=== PATIENT | female | born 1975 | race African-American/Black ===

== ENCOUNTER → 2016-09-22 10:20 | Outpatient (CLI) | payer BC ==
[2010-10-29 13:55] VITALS: BMI 28.4
== END | disposition home or self-care (01) ==
LOC: D.RT 10:20
DX: J45.909 Unspecified asthma, uncomplicated (principal)

== ENCOUNTER → 2017-04-13 13:59 | Outpatient (CLI) | payer MEDICARE ==
[2010-10-29 13:55] VITALS: BMI 28.4
[2017-04-14 08:13] LABS: IMMUNOGLOBULIN E 3 IU/mL (0-100)
== END | disposition home or self-care (01) ==
LOC: D.RT 13:59
PROVIDERS: Internal Medicine Pulmonary Disease
DX: I26.99 Other pulmonary embolism without acute cor pulmonale (principal)

== ENCOUNTER 2017-05-24 09:13 | Outpatient (CLI) | payer MEDICARE ==
[~2017-05-24] VITALS: Ht 208.3 cm; Wt 84.1 kg
[2017-05-24] MEDS ORDERED: NORVASC2.5 MG PO (10:51)
[2017-05-24] MEDS ORDERED: METOPROLOL TART50 MG PO (10:51)
[2017-05-24] MEDS ORDERED: COUMADIN7.5 MG PO (10:52)
[2017-05-24] MEDS ORDERED: ATIVAN1 MG PO (10:53)
[2017-05-24] MEDS ORDERED: NOVOLIN N100 U/ML SQ (10:54)
[2017-05-24] MEDS ORDERED: CELEXA40 MG PO (10:55)
[2017-05-24] MEDS ORDERED: HUMALOG 30100 UNITS/ SC (10:55)
[2017-05-24 10:58] LABS: BASOPHILS 0.2 % (0-2); EOSINOPHILS 2.4 % (0-7); HEMATOCRIT 40.2 % (36.0-48.0); HEMOGLOBIN 13.7 g/dL (12-16); IMMATURE GRANULOCYTES 0.2 % (0-5); LYMPHOCYTES 43.7 % (15-50); MCH 29.8 pg (26.0-34.0); MCHC 34.1 g/dL (31.0-37.0); MCV 87.6 fL (80.0-100.0); MEAN PLATELET VOLUME 10.4 fL (7.4-10.4); MONOCYTES 7.2 % (2-11); NEUTROPHILS 46.3 % (40-80); PLATELET COUNT 260 10x3/uL (130-400); RBC 4.59 10x6/uL (4.00-5.40); RDW 13.1 % (11.5-14.5); WBC 5.7 10x3/uL (4.8-10.8)
[2017-05-24 11:03] VITALS: BP 147/86; Ht 208.3 cm; Wt 84.1 kg
[2017-05-24 11:03] LABS: APTT 27.6 SECONDS (22.8-39.4); INR 1.02 (0.85-1.17)
[2017-05-24 11:08] LABS: ALBUMIN 3.2 g/dL (3.4-5.0); ALKALINE PHOSPHATASE 67 U/L (46-116); ALT (SGPT) 21 U/L (10-68); BILIRUBIN - TOTAL 0.38 mg/dL (0.2-1.3); CALC OSMOLALITY 273 mosm/kg (275-300); CALCIUM 8.8 mg/dL (8.5-10.1); CARBON DIOXIDE 27.8 mmol/L (21.0-32.0); CHLORIDE - SERUM 104 mmol/L (98-107); CREATININE - SERUM 0.8 mg/dL (0.6-1.3); POTASSIUM - SERUM 3.5 mmol/L (3.5-5.1); SODIUM 138 mmol/L (136-145); UREA NITROGEN 9 mg/dL (7-18); eGFR NON AFRICAN AMERICAN 83 mL/min (90-120)
[2017-05-24 11:10] LABS: GLUCOSE 79 mg/dL (74-106)
[2017-05-24 18:30] LABS: MACROPHAGES BF 44 %
[2017-05-25 11:18] LABS: ANA REFLEX - DIRECT Negative (Negative)
[2017-05-25 13:16] LABS: FUNGUS STAIN Final report (())
[2017-05-25 17:12] LABS: ACID FAST SMEAR Negative (()); AFB SPECIMEN PROCESSING Concentration (())
[2017-05-28 17:11] LABS: ANCA - ANTIMYELOPEROXIDASE <9.0 U/mL (0.0-9.0); ANCA - ANTIPROTEINASE 3 <3.5 U/mL (0.0-3.5); ANCA - ATYPICAL <1:20 titer (Neg:<1:20); ANCA - CYTOPLASMIC <1:20 titer (Neg:<1:20); ANCA - PERINUCLEAR <1:20 titer (Neg:<1:20)
== END 2017-05-24 14:45 | disposition home or self-care (01) ==
LOC: D.OPS 09:13
PROVIDERS: Internal Medicine Pulmonary Disease
DX: J84.9 Interstitial pulmonary disease, unspecified (principal); J45.909 Unspecified asthma, uncomplicated; R05 Cough; R93.8 Abnormal findings on diagnostic imaging of other specified body structures; I10 Essential (primary) hypertension; E11.9 Type 2 diabetes mellitus without complications; Z01.812 Encounter for preprocedural laboratory examination

== ENCOUNTER 2018-02-15 15:19 | Inpatient (IN) | payer BC ==
[~2018-02-15] VITALS: Ht 208.3 cm; Wt 84.6 kg
--- NOTE | ~2018-02-15 | MORECARE ---
CASE MANAGEMENT DISCHARGE SUMMARY PATIENT: AFSANEH CORCORAN UNIT: [id number] ADM DATE: 02/15/18 AGE: 42 : 75 SEX: F ROOM/BED: D.[facility] AUTHOR: AMY,DOC PHYSICIAN: REFERRING PHYSICIAN: SATISH FARR MD DATE OF SERVICE: 02/25/18 Discharge Plan Patient Name: AFSANEH CORCORAN Facility: [facility]:[place] : 1975 Planned Disposition: Home Anticipated Discharge Date: Discharge Date: 02/25/2018 Expected LOS: Initial Reviewer: [email or web address] Initial Review Date: 02/18/2018 Generated: 02/25/18 6:42 pm Comments DCP- Discharge Planning Updated by [email or web address]: Sandra Jonas on 02/18/18 3:[address] Patient Name: AFSANEH CORCORAN Admission Status: Urgent Accout number: [id number] Admission Date: 02-15-2018 : 1975 Admission Diagnosis: Attending: SATISH FARR Current LOS: 3 Anticipated DC Date: Planned Disposition: Home Primary Insurance: [employer] TRUE BLUE PPO Discharge Planning Comments: CM met with patient and her family in the room. Verbal permission received to discuss discharge planning with family present. She states she lives with her 4 children (ages are 25,24,19 and 7). States she is independent with all ADL's and IADL's. She does have oxygen with portability and nebulizer at home and her DME company is with [facility] in [place]. I discussed the availability of inpatient rehab, SNF, home health and additional DME. She declines needs at this time. No needs identified. CM will continue to follow and assist with discharge planning/needs. Sawyer Helper: Sandra Jonas DCPIA - Discharge Planning Initial Assessment Updated by [email or web address]: Sandra Jonas on 02/18/18 4:50 pm * Is the patient Alert and Oriented? Yes * How many steps to enter\exit or inside your home? 0/0 * PCP Dr. Farr * [facility] [address] * Preadmission Environment Home with Family * ADLs Independent * Equipment Nebulizer Other Oxygen * Other Equipment Portable oxygen * List name and contact numbers for known caregivers / representatives who currently or will assist patient after discharge: Breezy Esposito - [facility] - [phone] Chela Esposito - DTR - [phone] * Verbal permission to speak to the caregivers and representatives has been obtained from the patient. Yes * Community resources currently utilized None * Please name any agencies selected above. DME company is [email or web address] * Additional services required to return to the preadmission environment? No * Can the patient safely return to the preadmission environment? Yes * Has this patient been hospitalized within the prior 30 days at any hospital? No Last DP export: 02/18/18 4:03 Patient Name: AFSANEH CORCORAN Page 60112 at 1742 All edits/amendments must be made on the electronic document DICTATION DATE: 02/25/181741 UI ENGINEER: HONORIO 02/25/181741 RPT#: [id number] DC DATE:02/25/18 STATUS: DIS IN [facility] [address] [place] [address] END OF REPORT
--- NOTE | ~2018-02-15 | MORECARE ---
CASE MANAGEMENT DISCHARGE SUMMARY PATIENT: AFSANEH CORCORAN UNIT: [id number] ADM DATE: 02/15/18 AGE: 42 : 75 SEX: F ROOM/BED: D.2231 AUTHOR: AMY,DOC PHYSICIAN: REFERRING PHYSICIAN: SATISH FARR MD DATE OF SERVICE: 02/18/18 Discharge Plan Patient Name: AFSANEH CORCORAN Facility: [facility]:[place] : 1975 Planned Disposition: Home Anticipated Discharge Date: Discharge Date: Expected LOS: Initial Reviewer: [email or web address] Initial Review Date: 02/18/2018 Generated: 02/18/18 6:03 pm Comments DCP- Discharge Planning Updated by [email or web address]: Sandra Jonas on 02/18/18 3:[address] Patient Name: AFSANEH CORCORAN Admission Status: Urgent Accout number: [id number] Admission Date: 02-15-2018 : 1975 Admission Diagnosis: Attending: SATISH FARR Current LOS: 3 Anticipated DC Date: Planned Disposition: Home Primary Insurance: [employer] TRUE BLUE PPO Discharge Planning Comments: CM met with patient and her family in the room. Verbal permission received to discuss discharge planning with family present. She states she lives with her 4 children (ages are 25,24,19 and 7). States she is independent with all ADL's and IADL's. She does have oxygen with portability and nebulizer at home and her DME company is with [facility] in [place]. I discussed the availability of inpatient rehab, SNF, home health and additional DME. She declines needs at this time. No needs identified. CM will continue to follow and assist with discharge planning/needs. Information Security Analyst: Sandra Jonas DCPIA - Discharge Planning Initial Assessment Updated by [email or web address]: Sandra Jonas on 02/18/18 4:50 pm * Is the patient Alert and Oriented? Yes * How many steps to enter\exit or inside your home? 0/0 * PCP Dr. Farr * [facility] [address] * Preadmission Environment Home with Family * ADLs Independent * Equipment Nebulizer Other Oxygen * Other Equipment Portable oxygen * List name and contact numbers for known caregivers / representatives who currently or will assist patient after discharge: Breezy Esposito - son - [phone] Chela Esposito - DTR - [phone] * Verbal permission to speak to the caregivers and representatives has been obtained from the patient. Yes * Community resources currently utilized None * Please name any agencies selected above. DME company is [employer] * Additional services required to return to the preadmission environment? No * Can the patient safely return to the preadmission environment? Yes * Has this patient been hospitalized within the prior 30 days at any hospital? No Last DP export: 02/18/18 3:54 Patient Name: AFSANEH CORCORAN Page 36457 at 1703 All edits/amendments must be made on the electronic document DICTATION DATE: 02/18/181701 ARCHITECTURAL WOOD MODEL MAKER: HONORIO 02/18/181701 RPT#: [id number] DC DATE: STATUS: ADM IN [facility] [address] [place] [address] END OF REPORT
--- NOTE | ~2018-02-15 | MORECARE ---
CASE MANAGEMENT DISCHARGE SUMMARY PATIENT: AFSANEH CORCORAN UNIT: [id number] ADM DATE: 02/15/18 AGE: 42 : 75 SEX: F ROOM/BED: D.2231 AUTHOR: AMY,DOC PHYSICIAN: REFERRING PHYSICIAN: SATISH FARR MD DATE OF SERVICE: 02/18/18 Discharge Plan Patient Name: AFSANEH CORCORAN Facility: [facility]:[place] : 1975 Planned Disposition: Home Anticipated Discharge Date: Discharge Date: Expected LOS: Initial Reviewer: [email or web address] Initial Review Date: 02/18/2018 Generated: 02/18/18 5:54 pm Comments DCP- Discharge Planning Updated by [email or web address]: Snadra Jonas on 02/18/18 3:[address] Patient Name: AFSANEH CORCORAN Admission Status: Urgent Accout number: [id number] Admission Date: 02-15-2018 : 1975 Admission Diagnosis: Attending: SATISH FARR Current LOS: 3 Anticipated DC Date: Planned Disposition: Home Primary Insurance: [email or web address] TRUE BLUE PPO Discharge Planning Comments: CM met with patient and her family in the room. Verbal permission received to discuss discharge planning with family present. She states she lives with her 4 children (ages are 25,24,19 and 7). States she is independent with all ADL's and IADL's. She does have oxygen with portability and nebulizer at home and her DME company is with [facility] in [place]. I discussed the availability of inpatient rehab, SNF, home health and additional DME. She declines needs at this time. No needs identified. CM will continue to follow and assist with discharge planning/needs. Appraiser Auditor: Sandra Jonas DCPIA - Discharge Planning Initial Assessment Updated by [email or web address]: Sandra Jonas on 02/18/18 4:50 pm * Is the patient Alert and Oriented? Yes * How many steps to enter\exit or inside your home? 0/0 * PCP Dr. Farr * [facility] [address] * Preadmission Environment Home with Family * ADLs Independent * Equipment Nebulizer Other Oxygen * Other Equipment Portable oxygen * List name and contact numbers for known caregivers / representatives who currently or will assist patient after discharge: Breezy Esposito - son - [phone] Chela Esposito - DTR - [phone] * Verbal permission to speak to the caregivers and representatives has been obtained from the patient. Yes * Community resources currently utilized None * Please name any agencies selected above. DME company is [employer] * Additional services required to return to the preadmission environment? No * Can the patient safely return to the preadmission environment? Yes * Has this patient been hospitalized within the prior 30 days at any hospital? No Patient Name: AFSANEH CORCORAN Page [id number] at 1654 All edits/amendments must be made on the electronic document DICTATION DATE: 02/18/181653 TRANSIT OPERATOR: HONORIO 02/18/181653 RPT#: [id number] [place] DATE: STATUS: ADM IN [facility] [address] [place] [address] END OF REPORT
--- NOTE | ~2018-02-15 | OP ---
PATIENT NAME: AFSANEH CORCORAN MEDICAL RECORD: [id number] :[birth year] LOCATION:[facility] D.CV03 ADMISSION DATE:02/15/18 SURGEON: SEVEN CHAPARRO MD DATE OF OPERATION: 02/19/2018 SURGEON: Seven Chaparro MD ANESTHESIA: General endotracheal, Melvin Gruber MD OPERATIONS PERFORMED: 1. Video-assisted thoracoscopy. 2. Left upper lobe biopsy. 3. Cultures for aerobe, anaerobe, TB, and fungus. PREOPERATIVE DIAGNOSIS: Interstitial lung disease. POSTOPERATIVE DIAGNOSIS: Interstitial lung disease. INDICATION FOR OPERATION: Interstitial lung disease. FINDINGS OF THE OPERATION: Noncompliant lung. There were no other pathologic abnormalities noted. ESTIMATED BLOOD LOSS: Less than 10 cc. DESCRIPTION OF PROCEDURE: After informed consent, adequate preoperative medication, and evaluation, the patient was brought to the operating room and placed on the table in supine position. After induction of general endotracheal anesthesia and application of appropriate monitoring devices, the patient underwent flexible fiberoptic bronchoscopy and placement of a double-lumen tube. The patient was then turned in right lateral decubitus position, protecting the neurological structures and pressure points. Left chest was prepped and draped in sterile field utilizing Betadine scrub, alcohol, and Betadine solution. A Betadine-impregnated drape was also used. A port was placed in the midaxillary line, ninth interspace, for the camera. The lung was examined. The lung was not compliant. The anterior fifth interspace and posterior seventh interspace were placed under direct vision. The upper lobe was grasped and a biopsy was taken utilizing an Endo-CORTES stapler. The specimen was removed in an Endopouch. The specimen was examined and a portion was sent for cultures. The remainder of the specimen went to pathology for histologic examination. The chest was irrigated. The chest was again examined and there was no bleeding. There were no air leaks. A #32 chest tube was placed through the camera port, secured, and connected to the underwater seal and suction. The anterior and posterior ports were removed and the wounds were closed with 2-0 Vicryl on the deep subcutaneous tissue, 5-0 subcuticular Monocryl on the skin. Sterile dressings were applied. The patient tolerated the procedure well, turned in a supine position, and transferred to cardiovascular recovery in satisfactory condition. TRANSINT:[id number] Voice Confirmation ID: [id number] DOCUMENT ID: [id number] OPERATIVE REPORT [id number] AFSANEH CORCORAN EDWARD MD at 1001 CC: [id number] DICTATION DATE: 02/19/18 1001 BASKETBALLS AND FOOTBALLS REVERSER: 02/19/18 1114 DIS IN 02/25/18 [place] [id number] [place] [id number]
[~2018-02-15 15:19] MED LIST: ATIVAN1 MG PO; CELEXA40 MG PO; COUMADIN7.5 MG PO; HUMALOG 30100 UNITS/ SC; METOPROLOL TART50 MG PO; NORVASC2.5 MG PO; NOVOLIN 70/30 110 ML SC
[2018-02-15 16:35] VITALS: BP 134/65
[2018-02-15 18:13] LABS: BASOPHILS 0.1 % (0-2); EOSINOPHILS 2.8 % (0-7); HEMATOCRIT 36.2 % (36.0-48.0); HEMOGLOBIN 12.1 g/dL (12-16); IMMATURE GRANULOCYTES 0.4 % (0-5); LYMPHOCYTES 31.2 % (15-50); MCH 29.6 pg (26.0-34.0); MCHC 33.4 g/dL (31.0-37.0); MCV 88.5 fL (80.0-100.0); MEAN PLATELET VOLUME 10.4 fL (7.4-10.4); MONOCYTES 5.7 % (2-11); NEUTROPHILS 59.8 % (40-80); PLATELET COUNT 258 10x3/uL (130-400); RBC 4.09 10x6/uL (4.00-5.40); RDW 12.9 % (11.5-14.5); WBC 6.8 10x3/uL (4.8-10.8)
[2018-02-15 18:44] LABS: INR 1.1 (0.85-1.17); PROTIME 13.8 SECONDS (11.6-15.0)
[2018-02-15 18:45] LABS: ALBUMIN 2.9 g/dL (3.4-5.0); ANION GAP 9.3 mmol/L (8-16); BILIRUBIN - TOTAL 0.22 mg/dL (0.2-1.3); CALCIUM 8.4 mg/dL (8.5-10.1); CARBON DIOXIDE 27.6 mmol/L (21.0-32.0); CREATININE - SERUM 0.9 mg/dL (0.6-1.3); POTASSIUM - SERUM 3.9 mmol/L (3.5-5.1); PROTEIN - SERUM 6.2 g/dL (6.4-8.2); THYROID STIMULATING HORMONE 1.57 uIU/mL (0.36-3.74)
[2018-02-15 21:16] VITALS: BP 148/75
[2018-02-15] MEDS ORDERED: NOVOLIN N SC (22:17)
[2018-02-16 04:17] VITALS: BP 153/82
[2018-02-16 11:22] LABS: BASOPHILS 0 % (0-2); EOSINOPHILS 0 % (0-7); HEMATOCRIT 38.2 % (36.0-48.0); HEMOGLOBIN 12.7 g/dL (12-16); IMMATURE GRANULOCYTES 0.3 % (0-5); LYMPHOCYTES 10.9 % (15-50); MCH 29.9 pg (26.0-34.0); MCHC 33.2 g/dL (31.0-37.0); MCV 89.9 fL (80.0-100.0); MEAN PLATELET VOLUME 10.7 fL (7.4-10.4); MONOCYTES 1.4 % (2-11); NEUTROPHILS 87.4 % (40-80); PLATELET COUNT 297 10x3/uL (130-400); RBC 4.25 10x6/uL (4.00-5.40); RDW 13.2 % (11.5-14.5); WBC 7.1 10x3/uL (4.8-10.8)
[2018-02-16 11:46] LABS: ANION GAP 14.1 mmol/L (8-16); CALCIUM 8.6 mg/dL (8.5-10.1); CARBON DIOXIDE 25.4 mmol/L (21.0-32.0); CREATININE - SERUM 0.9 mg/dL (0.6-1.3)
[2018-02-16 11:55] LABS: POTASSIUM - SERUM 4.5 mmol/L (3.5-5.1)
[2018-02-16 15:00] VITALS: BP 126/60
[2018-02-16 21:31] VITALS: BP 135/63
[2018-02-17 06:03] VITALS: BP 127/64
[2018-02-17 07:49] LABS: BASOPHILS 0 % (0-2); EOSINOPHILS 0 % (0-7); HEMATOCRIT 36.9 % (36.0-48.0); HEMOGLOBIN 12.3 g/dL (12-16); IMMATURE GRANULOCYTES 0.2 % (0-5); LYMPHOCYTES 11.8 % (15-50); MCH 29.6 pg (26.0-34.0); MCHC 33.3 g/dL (31.0-37.0); MCV 88.9 fL (80.0-100.0); MEAN PLATELET VOLUME 10.5 fL (7.4-10.4); MONOCYTES 1.5 % (2-11); NEUTROPHILS 86.5 % (40-80); PLATELET COUNT 283 10x3/uL (130-400); RBC 4.15 10x6/uL (4.00-5.40); RDW 12.8 % (11.5-14.5); WBC 8.8 10x3/uL (4.8-10.8)
[2018-02-17 07:57] LABS: CALC OSMOLALITY 280 mosm/kg (275-300); CALCIUM 8.6 mg/dL (8.5-10.1); CARBON DIOXIDE 27.6 mmol/L (21.0-32.0); CHLORIDE - SERUM 104 mmol/L (98-107); CREATININE - SERUM 0.8 mg/dL (0.6-1.3); POTASSIUM - SERUM 4.3 mmol/L (3.5-5.1); SODIUM 137 mmol/L (136-145); UREA NITROGEN 14 mg/dL (7-18); eGFR NON AFRICAN AMERICAN 83 mL/min (90-120)
[2018-02-17 07:58] LABS: GLUCOSE 209 mg/dL (74-106)
[2018-02-17 08:05] LABS: INR 1.33 (0.85-1.17)
[2018-02-17 20:00] VITALS: BP 142/65
[2018-02-18 05:00] VITALS: BP 142/70
[2018-02-18 06:04] LABS: BASOPHILS 0 % (0-2); EOSINOPHILS 0 % (0-7); HEMOGLOBIN 12.6 g/dL (12-16); IMMATURE GRANULOCYTES 0.2 % (0-5); LYMPHOCYTES 15.2 % (15-50); MCH 29.6 pg (26.0-34.0); MCHC 33.2 g/dL (31.0-37.0); MCV 89.4 fL (80.0-100.0); MEAN PLATELET VOLUME 10.5 fL (7.4-10.4); MONOCYTES 4.3 % (2-11); NEUTROPHILS 80.3 % (40-80); PLATELET COUNT 298 10x3/uL (130-400); RBC 4.25 10x6/uL (4.00-5.40); RDW 13.1 % (11.5-14.5); WBC 8.9 10x3/uL (4.8-10.8)
[2018-02-18 06:20] LABS: INR 1.19 (0.85-1.17); PROTIME 14.7 SECONDS (11.6-15.0)
[2018-02-18 06:29] LABS: CALC OSMOLALITY 282 mosm/kg (275-300); CALCIUM 8.4 mg/dL (8.5-10.1); CARBON DIOXIDE 27.8 mmol/L (21.0-32.0); CHLORIDE - SERUM 105 mmol/L (98-107); CREATININE - SERUM 0.8 mg/dL (0.6-1.3); SODIUM 142 mmol/L (136-145); UREA NITROGEN 12 mg/dL (7-18); eGFR NON AFRICAN AMERICAN 83 mL/min (90-120)
[2018-02-18 06:35] LABS: GLUCOSE 90 mg/dL (74-106)
[2018-02-18 08:21] VITALS: BP 128/78
[2018-02-18 12:38] VITALS: BP 116/56
[2018-02-18 16:52] LABS: HEMATOCRIT 39.3 % (36.0-48.0); HEMOGLOBIN 13.2 g/dL (12-16); MCHC 33.6 g/dL (31.0-37.0); MCV 89.3 fL (80.0-100.0); MEAN PLATELET VOLUME 10.4 fL (7.4-10.4); RBC 4.4 10x6/uL (4.00-5.40)
[2018-02-18 17:00] LABS: APTT 32.4 SECONDS (22.8-39.4); INR 1.07 (0.85-1.17); PROTIME 13.5 SECONDS (11.6-15.0)
[2018-02-18 17:16] LABS: ANION GAP 12.8 mmol/L (8-16); BILIRUBIN - TOTAL 0.22 mg/dL (0.2-1.3); CALCIUM 8.5 mg/dL (8.5-10.1); CARBON DIOXIDE 27.1 mmol/L (21.0-32.0); CREATININE - SERUM 0.9 mg/dL (0.6-1.3); POTASSIUM - SERUM 3.9 mmol/L (3.5-5.1); PROTEIN - SERUM 6.5 g/dL (6.4-8.2)
[2018-02-18 20:00] VITALS: BP 114/50
[2018-02-19] VITALS (24 sets, daily range): BP systolic 117–155; BP diastolic 50–70
[2018-02-19 06:06] LABS: BASOPHILS 0.1 % (0-2); EOSINOPHILS 0 % (0-7); HEMATOCRIT 39.3 % (36.0-48.0); IMMATURE GRANULOCYTES 0.7 % (0-5); LYMPHOCYTES 19.8 % (15-50); MCH 29.9 pg (26.0-34.0); MCHC 33.1 g/dL (31.0-37.0); MCV 90.3 fL (80.0-100.0); MEAN PLATELET VOLUME 10.5 fL (7.4-10.4); MONOCYTES 5.5 % (2-11); NEUTROPHILS 73.9 % (40-80); PLATELET COUNT 288 10x3/uL (130-400); RBC 4.35 10x6/uL (4.00-5.40); RDW 12.9 % (11.5-14.5); WBC 7.6 10x3/uL (4.8-10.8)
[2018-02-19 06:12] LABS: APTT 26.8 SECONDS (22.8-39.4); INR 1.04 (0.85-1.17); PROTIME 13.2 SECONDS (11.6-15.0)
[2018-02-19 06:14] LABS: CALC OSMOLALITY 275 mosm/kg (275-300); CALCIUM 8.2 mg/dL (8.5-10.1); CARBON DIOXIDE 27.6 mmol/L (21.0-32.0); CHLORIDE - SERUM 103 mmol/L (98-107); CREATININE - SERUM 0.7 mg/dL (0.6-1.3); GLUCOSE 190 mg/dL (74-106); POTASSIUM - SERUM 4.3 mmol/L (3.5-5.1); SODIUM 135 mmol/L (136-145); UREA NITROGEN 15 mg/dL (7-18); eGFR NON AFRICAN AMERICAN > 90 mL/min (90-120)
[2018-02-19 14:08] LABS: APPEARANCE CLEAR (CLEAR); BACTERIA FEW /hpf (NONE SEEN); BILIRUBIN NEGATIVE (NEGATIVE); COLOR YELLOW (YELLOW); EPITHELIAL CELLS 0-5 /hpf (0-5); GLUCOSE 1000 mg/dL (NEGATIVE); KETONE LARGE mg/dL (NEGATIVE); NITRITE NEGATIVE (NEGATIVE); PROTEIN NEGATIVE (NEGATIVE); SPECIFIC GRAVITY 1.015 (1.005-1.020); UROBILINOGEN NORMAL (NORMAL); WHITE CELLS - URINE OCC /hpf (0-5)
[2018-02-20] VITALS (26 sets, daily range): BP systolic 99–160; BP diastolic 45–82
[2018-02-20 06:12] LABS: BASOPHILS 0 % (0-2); EOSINOPHILS 0 % (0-7); HEMATOCRIT 32.7 % (36.0-48.0); HEMOGLOBIN 10.7 g/dL (12-16); IMMATURE GRANULOCYTES 0.4 % (0-5); LYMPHOCYTES 16.3 % (15-50); MCH 29.9 pg (26.0-34.0); MCHC 32.7 g/dL (31.0-37.0); MCV 91.3 fL (80.0-100.0); MONOCYTES 7.6 % (2-11); NEUTROPHILS 75.7 % (40-80); PLATELET COUNT 232 10x3/uL (130-400); RBC 3.58 10x6/uL (4.00-5.40); RDW 13.1 % (11.5-14.5); WBC 8.9 10x3/uL (4.8-10.8)
[2018-02-20 06:26] LABS: INR 1.07 (0.85-1.17); PROTIME 13.5 SECONDS (11.6-15.0)
[2018-02-20 06:40] LABS: ALBUMIN 2.2 g/dL (3.4-5.0); ALKALINE PHOSPHATASE 53 U/L (46-116); ALT (SGPT) 16 U/L (10-68); BILIRUBIN - TOTAL 0.45 mg/dL (0.2-1.3); CALC OSMOLALITY 281 mosm/kg (275-300); CALCIUM 7.2 mg/dL (8.5-10.1); CARBON DIOXIDE 27.9 mmol/L (21.0-32.0); CHLORIDE - SERUM 105 mmol/L (98-107); CREATININE - SERUM 0.8 mg/dL (0.6-1.3); GLUCOSE 251 mg/dL (74-106); POTASSIUM - SERUM 4.5 mmol/L (3.5-5.1); PROTEIN - SERUM 5.3 g/dL (6.4-8.2); SODIUM 137 mmol/L (136-145); UREA NITROGEN 13 mg/dL (7-18); eGFR NON AFRICAN AMERICAN 83 mL/min (90-120)
[2018-02-20 13:18] LABS: FUNGUS STAIN Final report (())
[2018-02-20 20:08] LABS: ACID FAST SMEAR Negative (()); AFB SPECIMEN PROCESSING Tissue Grinding (())
[2018-02-21] VITALS (26 sets, daily range): BP systolic 108–159; BP diastolic 46–82
[2018-02-21 06:29] LABS: ALBUMIN 2.2 g/dL (3.4-5.0); ALKALINE PHOSPHATASE 54 U/L (46-116); ALT (SGPT) 20 U/L (10-68); BILIRUBIN - TOTAL 0.19 mg/dL (0.2-1.3); CALCIUM 8.2 mg/dL (8.5-10.1); CARBON DIOXIDE 30.7 mmol/L (21.0-32.0); CHLORIDE - SERUM 104 mmol/L (98-107); CREATININE - SERUM 0.7 mg/dL (0.6-1.3); POTASSIUM - SERUM 4.2 mmol/L (3.5-5.1); PROTEIN - SERUM 5.6 g/dL (6.4-8.2); SODIUM 138 mmol/L (136-145); UREA NITROGEN 14 mg/dL (7-18); eGFR NON AFRICAN AMERICAN > 90 mL/min (90-120)
[2018-02-21 06:33] LABS: CALC OSMOLALITY 281 mosm/kg (275-300); GLUCOSE 197 mg/dL (74-106)
[2018-02-21 06:46] LABS: BASOPHILS 0.1 % (0-2); EOSINOPHILS 0 % (0-7); HEMATOCRIT 35.1 % (36.0-48.0); HEMOGLOBIN 11.6 g/dL (12-16); IMMATURE GRANULOCYTES 0.9 % (0-5); LYMPHOCYTES 15.8 % (15-50); MCH 29.7 pg (26.0-34.0); MEAN PLATELET VOLUME 10.2 fL (7.4-10.4); NEUTROPHILS 76.2 % (40-80); PLATELET COUNT 227 10x3/uL (130-400); RDW 13.1 % (11.5-14.5); WBC 8.9 10x3/uL (4.8-10.8)
[2018-02-22] VITALS (27 sets, daily range): BP systolic 132–172; BP diastolic 52–88; Ht 208.3 cm; Wt 84.6 kg
[2018-02-22 06:24] LABS: BASOPHILS 0 % (0-2); EOSINOPHILS 0.1 % (0-7); HEMATOCRIT 36.9 % (36.0-48.0); HEMOGLOBIN 12.2 g/dL (12-16); IMMATURE GRANULOCYTES 1.3 % (0-5); LYMPHOCYTES 15.5 % (15-50); MCHC 33.1 g/dL (31.0-37.0); MCV 90.9 fL (80.0-100.0); MEAN PLATELET VOLUME 10.2 fL (7.4-10.4); MONOCYTES 5.9 % (2-11); NEUTROPHILS 77.2 % (40-80); PLATELET COUNT 263 10x3/uL (130-400); RBC 4.06 10x6/uL (4.00-5.40); RDW 13.3 % (11.5-14.5); WBC 10.1 10x3/uL (4.8-10.8)
[2018-02-22 06:29] LABS: ALBUMIN 2.3 g/dL (3.4-5.0); ALKALINE PHOSPHATASE 56 U/L (46-116); ALT (SGPT) 21 U/L (10-68); BILIRUBIN - TOTAL 0.15 mg/dL (0.2-1.3); CALC OSMOLALITY 279 mosm/kg (275-300); CALCIUM 8.3 mg/dL (8.5-10.1); CARBON DIOXIDE 29.9 mmol/L (21.0-32.0); CHLORIDE - SERUM 103 mmol/L (98-107); CREATININE - SERUM 0.7 mg/dL (0.6-1.3); GLUCOSE 179 mg/dL (74-106); POTASSIUM - SERUM 4.2 mmol/L (3.5-5.1); SODIUM 138 mmol/L (136-145); UREA NITROGEN 13 mg/dL (7-18); eGFR NON AFRICAN AMERICAN > 90 mL/min (90-120)
[2018-02-23] VITALS (24 sets, daily range): BP systolic 106–150; BP diastolic 58–85
[2018-02-23 05:43] LABS: BASOPHILS 0.1 % (0-2); EOSINOPHILS 2.9 % (0-7); HEMATOCRIT 39.6 % (36.0-48.0); HEMOGLOBIN 13.2 g/dL (12-16); IMMATURE GRANULOCYTES 3.5 % (0-5); LYMPHOCYTES 29.4 % (15-50); MCH 30.1 pg (26.0-34.0); MCHC 33.3 g/dL (31.0-37.0); MCV 90.2 fL (80.0-100.0); MEAN PLATELET VOLUME 9.9 fL (7.4-10.4); NEUTROPHILS 55.1 % (40-80); PLATELET COUNT 278 10x3/uL (130-400); RBC 4.39 10x6/uL (4.00-5.40); RDW 13.3 % (11.5-14.5)
[2018-02-23 05:55] LABS: WBC 16.4 10x3/uL (4.8-10.8)
[2018-02-23 06:00] LABS: CALCIUM 8.7 mg/dL (8.5-10.1); CARBON DIOXIDE 30.9 mmol/L (21.0-32.0); CHLORIDE - SERUM 102 mmol/L (98-107); CREATININE - SERUM 0.8 mg/dL (0.6-1.3); SODIUM 139 mmol/L (136-145); eGFR NON AFRICAN AMERICAN 83 mL/min (90-120)
[2018-02-23 06:02] LABS: CALC OSMOLALITY 277 mosm/kg (275-300); POTASSIUM - SERUM 3.3 mmol/L (3.5-5.1); UREA NITROGEN 22 mg/dL (7-18)
[2018-02-23 06:08] LABS: GLUCOSE 36 mg/dL (74-106)
[2018-02-24] VITALS (24 sets, daily range): BP systolic 113–155; BP diastolic 45–74
[2018-02-25] VITALS (12 sets, daily range): BP systolic 114–139; BP diastolic 44–68
[2018-02-25 06:57] LABS: INR 1.05 (0.85-1.17); PROTIME 13.4 SECONDS (11.6-15.0)
[2018-02-25] MEDS ORDERED: ASPIRIN EC81 M1 PO (10:24)
[2018-02-25] MEDS ORDERED: Percocet-10 PO (10:30)
[2018-02-25] MEDS ORDERED: PREDNISONE20 MG PO (11:22)
[2018-02-26 15:23] LABS: FUNGUS MYCOLOGY CULTURE Preliminary report (())
== END 2018-02-25 15:23 | disposition home or self-care (01) | DRG 166 ==
LOC: D.MS 15:19 → D.CVICU 15:19
PROVIDERS: Emergency Medicine; Family Medicine; Internal Medicine Cardiovascular Disease; Internal Medicine Nephrology; Internal Medicine Pulmonary Disease
PROC: 0BBG4ZX Excision of Left Upper Lung Lobe, Percutaneous Endoscopic Approach, Diagnostic (ICD-10-PCS; principal; 2018-02-19 07:30)
DX: J15.6 Pneumonia due to other Gram-negative bacteria (principal); J96.21 Acute and chronic respiratory failure with hypoxia; J84.9 Interstitial pulmonary disease, unspecified; D68.59 Other primary thrombophilia; J45.901 Unspecified asthma with (acute) exacerbation; J15.20 Pneumonia due to staphylococcus, unspecified; E10.9 Type 1 diabetes mellitus without complications; I10 Essential (primary) hypertension; F41.9 Anxiety disorder, unspecified; E78.5 Hyperlipidemia, unspecified; Z86.711 Personal history of pulmonary embolism; Z79.01 Long term (current) use of anticoagulants

== ENCOUNTER → 2018-03-28 08:57 | Outpatient (CLI) | payer BC ==
[2018-02-22 01:43] VITALS: BMI 20.7
[~2018-03-28 08:57] MED LIST changes: +ASPIRIN EC81 M1 PO; +NORCO 10-325 TA1 TAB PO; +NOVOLIN N SC; +PREDNISONE20 MG PO; +Percocet-10 PO
== END | disposition home or self-care (01) ==
LOC: D.RAD 08:57
DX: J84.9 Interstitial pulmonary disease, unspecified (principal)

== ENCOUNTER 2018-03-29 13:09 | Inpatient (IN) | payer BC ==
[2018-02-22 01:43] VITALS: BMI 20.7
--- NOTE | ~2018-03-29 | MORECARE ---
CASE MANAGEMENT DISCHARGE SUMMARY PATIENT: AFSANEH CORCORAN UNIT: [id number] ADM DATE: 03/29/18 AGE: 42 : 75 SEX: F ROOM/BED: D.2239 AUTHOR: AMY,DOC PHYSICIAN: REFERRING PHYSICIAN: CALEB KULKARNI MD DATE OF SERVICE: 04/04/18 Discharge Plan Patient Name: AFSANEH CORCORAN Facility: [facility]:[place] : 1975 Planned Disposition: Home Anticipated Discharge Date: 04/01/18 Discharge Date: 04/01/2018 Expected LOS: 3 Initial Reviewer: [email or web address] Initial Review Date: 04/01/2018 Generated: 04/04/18 1:54 pm Comments DCP- Discharge Planning Updated by [email or web address]: Sandra Jonas on 04/01/18 11:[address] Patient Name: AFSANEH CORCORAN Admission Status: Elective Accout number: [id number] Admission Date: 03-29-2018 : 1975 Admission Diagnosis: Attending: CALEB KULKARNI Current LOS: 3 Anticipated DC Date: 04-01-2018 Planned Disposition: Home Primary Insurance: [employer] TRUE BLUE PPO Discharge Planning Comments: CM met with patient to discuss discharge planning, she is alone in the room. States she lives with her 4 children (ages 25,24,19 and 7). States she is independent with all ADL's and IADL's. States either her older son or daughter will take her home on discharge. States she has oxygen with portability and it is in the car. Declines need for home health services. No needs identified. Anticipate discharge possible later today if XRAY is stable after CT is removed. CM will continue to follow and assist with discharge planning/needs. Change Management Consultant: Sandra Jonas DCPIA - Discharge Planning Initial Assessment Updated by [email or web address]: Sandra Jonas on 04/01/18 12:47 pm * Is the patient Alert and Oriented? Yes * How many steps to enter\exit or inside your home? 0/0 * PCP Dr. Farr * Pharmacy [facility] on [address] * Preadmission Environment Home with Family * ADLs Independent * Equipment Nebulizer Other Oxygen * Other Equipment Portable oxygen * List name and contact numbers for known caregivers / representatives who currently or will assist patient after discharge: Breezy Esposito - son - [phone] Chela DTR - [phone] * Verbal permission to speak to the caregivers and representatives has been obtained from the patient. Yes * Community resources currently utilized None * Please name any agencies selected above. [employer] is DME or oxygen * Additional services required to return to the preadmission environment? No * Can the patient safely return to the preadmission environment? Yes * Has this patient been hospitalized within the prior 30 days at any hospital? No Last DP export: 04/01/18 11:50 Patient Name: AFSANEH CORCORAN Page 16568 at 1254 All edits/amendments must be made on the electronic document DICTATION DATE: 04/04/181252 SERVICE ORDER CLERK: HONORIO 04/04/18 1253 RPT#: [id number] DC DATE:04/01/18 STATUS: DIS IN [facility] [address] [place] [address] END OF REPORT
--- NOTE | ~2018-03-29 | MORECARE ---
CASE MANAGEMENT DISCHARGE SUMMARY PATIENT: AFSANEH CORCORAN UNIT: [id number] ADM DATE: 03/29/18 AGE: 42 : 75 SEX: F ROOM/BED: D.2239 AUTHOR: AMY,DOC PHYSICIAN: REFERRING PHYSICIAN: CALEB KULKARNI MD DATE OF SERVICE: 04/01/18 Discharge Plan Patient Name: AFSANEH CORCORAN Facility: [facility]:[place] : 1975 Planned Disposition: Home Anticipated Discharge Date: 04/01/18 Discharge Date: Expected LOS: 3 Initial Reviewer: [email or web address] Initial Review Date: 04/01/2018 Generated: 04/01/18 1:50 pm Comments DCP- Discharge Planning Updated by [email or web address]: Sandra Jonas on 04/01/18 11:[address] Patient Name: AFSANEH CORCORAN Admission Status: Elective Accout number: [id number] Admission Date: 03-29-2018 : 1975 Admission Diagnosis: Attending: CALEB KULKARNI Current LOS: 3 Anticipated DC Date: 04-01-2018 Planned Disposition: Home Primary Insurance: [employer] TRUE BLUE PPO Discharge Planning Comments: CM met with patient to discuss discharge planning, she is alone in the room. States she lives with her 4 children (ages 25,24,19 and 7). States she is independent with all ADL's and IADL's. States either her older son or daughter will take her home on discharge. States she has oxygen with portability and it is in the car. Declines need for home health services. No needs identified. Anticipate discharge possible later today if XRAY is stable after CT is removed. CM will continue to follow and assist with discharge planning/needs. Pharmacognosy Teacher: Sandra Jonas DCPIA - Discharge Planning Initial Assessment Updated by [email or web address]: Sandra Jonas on 04/01/18 12:47 pm * Is the patient Alert and Oriented? Yes * How many steps to enter\exit or inside your home? 0/0 * PCP Dr. Farr * Pharmacy [facility] on [address] * Preadmission Environment Home with Family * ADLs Independent * Equipment Nebulizer Other Oxygen * Other Equipment Portable oxygen * List name and contact numbers for known caregivers / representatives who currently or will assist patient after discharge: Breezy Esposito - [facility] - [phone] [facility] - [phone] * Verbal permission to speak to the caregivers and representatives has been obtained from the patient. Yes * Community resources currently utilized None * Please name any agencies selected above. [employer] is DME or oxygen * Additional services required to return to the preadmission environment? No * Can the patient safely return to the preadmission environment? Yes * Has this patient been hospitalized within the prior 30 days at any hospital? No Patient Name: AFSANEH CORCORAN Page 31749 at 1250 All edits/amendments must be made on the electronic document DICTATION DATE: 04/01/181248 SAFE AND VAULT MECHANIC: HONORIO 04/01/181248 RPT#: [id number] DC DATE: STATUS: ADM IN [facility] [address] [place] [address] END OF REPORT
[~2018-03-29 13:09] MED LIST changes: -NORCO 10-325 TA1 TAB PO
[2018-03-29] MEDS ORDERED: NORCO 10-325 TA1 TAB PO (13:39)
[2018-03-29 15:52] LABS: BASOPHILS 0.3 % (0-2); EOSINOPHILS 0.5 % (0-7); HEMATOCRIT 42.1 % (36.0-48.0); HEMOGLOBIN 14.3 g/dL (12-16); IMMATURE GRANULOCYTES 0.7 % (0-5); LYMPHOCYTES 19.9 % (15-50); MCV 88.4 fL (80.0-100.0); MEAN PLATELET VOLUME 9.9 fL (7.4-10.4); MONOCYTES 4.1 % (2-11); NEUTROPHILS 74.5 % (40-80); PLATELET COUNT 324 10x3/uL (130-400); RBC 4.76 10x6/uL (4.00-5.40); RDW 13.3 % (11.5-14.5); WBC 7.5 10x3/uL (4.8-10.8)
[2018-03-29 16:01] LABS: CALC OSMOLALITY 278 mosm/kg (275-300); CALCIUM 8.3 mg/dL (8.5-10.1); CARBON DIOXIDE 24.4 mmol/L (21.0-32.0); CHLORIDE - SERUM 104 mmol/L (98-107); CREATININE - SERUM 0.6 mg/dL (0.6-1.3); POTASSIUM - SERUM 4.1 mmol/L (3.5-5.1); SODIUM 139 mmol/L (136-145); UREA NITROGEN 17 mg/dL (7-18); eGFR NON AFRICAN AMERICAN > 90 mL/min (90-120)
[2018-03-29 16:02] LABS: GLUCOSE 84 mg/dL (74-106); INR 2.16 (0.85-1.17); PROTIME 23.4 SECONDS (11.6-15.0)
[2018-03-29 16:56] VITALS: BP 160/82
[2018-03-29 17:11] VITALS: BP 153/71
[2018-03-29 17:26] VITALS: BP 146/72
[2018-03-29 17:41] VITALS: BP 151/78
[2018-03-29 18:27] VITALS: BP 152/77
[2018-03-29 21:33] VITALS: BP 156/77
[2018-03-30 01:10] VITALS: BP 111/49
[2018-03-30 07:00] VITALS: BP 151/66
[2018-03-30 09:47] LABS: INR 2.28 (0.85-1.17); PROTIME 24.4 SECONDS (11.6-15.0)
[2018-03-30 09:54] LABS: ALBUMIN 2.6 g/dL (3.4-5.0); ANION GAP 10.8 mmol/L (8-16); BILIRUBIN - TOTAL 0.2 mg/dL (0.2-1.3); CALCIUM 7.9 mg/dL (8.5-10.1); CARBON DIOXIDE 26.9 mmol/L (21.0-32.0); POTASSIUM - SERUM 3.7 mmol/L (3.5-5.1); PROTEIN - SERUM 6.1 g/dL (6.4-8.2)
[2018-03-30 09:55] LABS: CREATININE - SERUM 0.9 mg/dL (0.6-1.3)
[2018-03-30 13:39] VITALS: BP 122/56
[2018-03-30 20:42] VITALS: BP 120/73
[2018-03-31 05:14] VITALS: BP 138/70
[2018-03-31 09:04] VITALS: BP 146/65
[2018-03-31 10:02] LABS: INR 2.34 (0.85-1.17)
[2018-03-31 10:18] LABS: ALBUMIN 2.5 g/dL (3.4-5.0); ALKALINE PHOSPHATASE 66 U/L (46-116); BILIRUBIN - TOTAL 0.13 mg/dL (0.2-1.3); CALCIUM 8.5 mg/dL (8.5-10.1); CARBON DIOXIDE 30.1 mmol/L (21.0-32.0); CHLORIDE - SERUM 104 mmol/L (98-107); CREATININE - SERUM 0.8 mg/dL (0.6-1.3); POTASSIUM - SERUM 3.6 mmol/L (3.5-5.1); PROTEIN - SERUM 6.1 g/dL (6.4-8.2); SODIUM 141 mmol/L (136-145); UREA NITROGEN 12 mg/dL (7-18); eGFR NON AFRICAN AMERICAN 83 mL/min (90-120)
[2018-03-31 10:29] LABS: ALT (SGPT) 23 U/L (10-68); CALC OSMOLALITY 277 mosm/kg (275-300); GLUCOSE 53 mg/dL (74-106)
[2018-03-31 12:30] VITALS: BP 115/41
[2018-03-31 17:15] VITALS: BP 123/53
[2018-03-31 21:14] VITALS: BP 146/68
[2018-04-01 04:19] VITALS: BP 142/78
[2018-04-01 05:08] LABS: INR 2.34 (0.85-1.17); PROTIME 24.9 SECONDS (11.6-15.0)
[2018-04-01 05:31] LABS: ALBUMIN 2.5 g/dL (3.4-5.0); ALKALINE PHOSPHATASE 64 U/L (46-116); ALT (SGPT) 21 U/L (10-68); BILIRUBIN - TOTAL 0.17 mg/dL (0.2-1.3); CALCIUM 8.7 mg/dL (8.5-10.1); CARBON DIOXIDE 29.2 mmol/L (21.0-32.0); CHLORIDE - SERUM 104 mmol/L (98-107); PROTEIN - SERUM 5.5 g/dL (6.4-8.2); SODIUM 141 mmol/L (136-145)
[2018-04-01 05:40] LABS: CALC OSMOLALITY 279 mosm/kg (275-300); CREATININE - SERUM 0.5 mg/dL (0.6-1.3); GLUCOSE 61 mg/dL (74-106); UREA NITROGEN 16 mg/dL (7-18); eGFR NON AFRICAN AMERICAN > 90 mL/min (90-120)
[2018-04-01 09:23] VITALS: BP 147/57
[2018-04-01 12:17] VITALS: BP 134/67
[2018-04-01] MEDS ORDERED: BACTRIM DS PO (15:03)
[2018-04-01] MEDS ORDERED: FLORAJEN3 CAPS460 MG PO (15:04)
== END 2018-04-01 18:46 | disposition home or self-care (01) | DRG 200 ==
LOC: D.MS 13:09
PROVIDERS: Internal Medicine Cardiovascular Disease; Internal Medicine Nephrology; Specialist
PROC: 0W9B30Z Drainage of Left Pleural Cavity with Drainage Device, Percutaneous Approach (ICD-10-PCS; principal; 2018-03-29 16:00)
DX: J93.83 Other pneumothorax (principal); J96.11 Chronic respiratory failure with hypoxia; D68.59 Other primary thrombophilia; I10 Essential (primary) hypertension; E10.9 Type 1 diabetes mellitus without complications

== ENCOUNTER 2019-02-27 05:53 | Emergency (ER) | payer BC ==
[~2019-02-27] VITALS: Ht 208.3 cm; Wt 87.7 kg
[~2019-02-27 05:53] MED LIST changes: +BACTRIM DS PO; +FLORAJEN3 CAPS460 MG PO; +NORCO 10-325 TA1 TAB PO
[2019-02-27 06:02] VITALS: Ht 208.3 cm; Wt 87.7 kg
[2019-02-27] MEDS ORDERED: COUMADIN3 MG PO (06:04)
[2019-02-27 06:16] LABS: BASOPHILS 0.7 % (0-2); EOSINOPHILS 2.8 % (0-7); HEMATOCRIT 39.9 % (36.0-48.0); HEMOGLOBIN 13.1 g/dL (12-16); IMMATURE GRANULOCYTES 0.2 % (0-5); LYMPHOCYTES 39.3 % (15-50); MCH 29.4 pg (26.0-34.0); MCHC 32.8 g/dL (31.0-37.0); MCV 89.5 fL (80.0-100.0); MEAN PLATELET VOLUME 9.8 fL (7.4-10.4); MONOCYTES 4.7 % (2-11); NEUTROPHILS 52.3 % (40-80); PLATELET COUNT 303 10x3/uL (130-400); RBC 4.46 10x6/uL (4.00-5.40); RDW 13.2 % (11.5-14.5); WBC 5.7 10x3/uL (4.8-10.8)
[2019-02-27 06:26] LABS: CALC OSMOLALITY 278 mosm/kg (275-300); CALCIUM 8.4 mg/dL (8.5-10.1); CARBON DIOXIDE 24.1 mmol/L (21.0-32.0); CHLORIDE - SERUM 104 mmol/L (98-107); CREATININE - SERUM 0.9 mg/dL (0.6-1.3); POTASSIUM - SERUM 4.1 mmol/L (3.5-5.1); SODIUM 136 mmol/L (136-145); UREA NITROGEN 12 mg/dL (7-18); eGFR NON AFRICAN AMERICAN 72 mL/min (90-120)
[2019-02-27 06:27] LABS: GLUCOSE 221 mg/dL (74-106)
[2019-02-27 06:37] LABS: APTT 40.1 SECONDS (22.8-39.4); INR 2.28 (0.85-1.17); PROTIME 24.5 SECONDS (11.6-15.0)
[2019-02-27 06:38] LABS: D-DIMER-QUANTITATIVE < 0.27 ug/mLFEU (0.20-0.54)
[2019-02-27 06:45] LABS: ALBUMIN 3.1 g/dL (3.4-5.0); ALKALINE PHOSPHATASE 78 U/L (46-116); ALT (SGPT) 29 U/L (10-68); BILIRUBIN - TOTAL 0.29 mg/dL (0.2-1.3); CKMB 0.5 U/L (0.0-3.6); CREATINE KINASE 70 UL (21-215); PRO BNP 76 pg/mL (0-125); PROTEIN - SERUM 7.1 g/dL (6.4-8.2); TROPONIN-I < 0.017 ng/mL (0.000-0.060)
[2019-02-27] MEDS ORDERED: LEVAQUIN750 MG PO (08:16)
[2019-02-27 09:44] VITALS: BP 146/65
== END 2019-02-27 09:41 | disposition home or self-care (01) ==
LOC: D.ER 05:53
PROVIDERS: Family Medicine
DX: J18.9 Pneumonia, unspecified organism (principal); R06.00 Dyspnea, unspecified; I10 Essential (primary) hypertension; E11.9 Type 2 diabetes mellitus without complications; Z79.4 Long term (current) use of insulin